=== PATIENT | male | born 1955 | race Caucasian/White ===

== ENCOUNTER 2020-01-03 11:58 | Emergency (ER) | payer OTHER ==
[~2020-01-03] VITALS: Ht 165.1 cm; Wt 56.7 kg
[~2020-01-03 11:58] MED LIST: MOTRIN800 MG PO
[2020-01-03 12:08] VITALS: BP 156/99; Ht 165.1 cm; Wt 56.7 kg
== END 2020-01-03 12:46 | disposition home or self-care (01) ==
LOC: ED 11:58
DX: G51.0 Bell's palsy (principal)